=== PATIENT | female | born 1955 | race Caucasian/White ===

== ENCOUNTER 2024-02-17 07:32 | Inpatient (IN) | payer OTHER, MEDICAID ==
[~2024-02-17] VITALS: Ht 162.6 cm; Wt 81.8 kg
[~2024-02-17 07:32] MED LIST: OMEP20CA74 PO
[2024-02-17 07:59] LABS: Basophils # (auto) 0.1 10 ^3/uL (0-0.2); Basophils % (auto) 1.2 % (0.0-2.0); Eosinophils # (auto) 0.2 10 ^3/uL (0-0.8); Eosinophils % (auto) 3.9 % (0.0-7.0); Hematocrit 42.1 % (36.0-46.0); Hemoglobin 14.5 g/dL (12.2-16.2); Lymphocytes # (auto) 2.2 10 ^3/uL (0.4-5.4); Mean Corpuscular Hemoglobin 31.7 pg (28.0-32.0); Mean Corpuscular Hgb Conc. 34.4 g/dL (32.0-36.0); Mean Corpuscular Volume 92.1 fL (80.0-100.0); Monocytes # (auto) 0.4 10 ^3/uL (0-1.3); Monocytes % (auto) 6.9 % (0.0-12.0); Neutrophils # (auto) 3.3 10 ^3/uL (1.6-8.6); Nucleated Red Blood Cells % 0.1 %; Red Blood Cells 4.57 10^6/uL (4.0-5.20); Red Cell Distribution Width 13.1 % (11.8-14.3); White Blood Cell 6.3 10^3/uL (4.4-10.8)
[2024-02-17 08:08] VITALS: RESP 16; O2SAT 99
[2024-02-17 08:19] LABS: Chloride 108 mmol/L (98-107); Potassium 4.2 mmol/L (3.5-5.1); Sodium 140 mmol/L (136-145)
[2024-02-17 08:20] LABS: Anion Gap 3 (5-15); Calcium 9.3 mg/dL (8.7-10.4); Carbon Dioxide 29 mmol/L (20-30)
[2024-02-17 08:25] LABS: Blood Urea Nitrogen 8 mg/dL (9-23); Glucose 195 mg/dL (74-106)
[2024-02-17 13:24] LABS: Urine Bacteria FEW /hpf (None Seen); Urine Blood TRACE /uL (Negative); Urine Color Yellow (Yellow); Urine Protein, UAD TRACE (Negative); Urine Specific Gravity 1.023 (1.001-1.035); Urine Urobilinogen 3 mg/dL (Negative); Urine WBC 35 /hpf (0 - 5); Urine pH 5.5 (5.0-9.0)
[2024-02-17 13:26] LABS: Urine Clarity Cloudy (Clear)
[2024-02-17] MEDS ORDERED: IPRATROPIUM BROM 0.5 MG/2.5ML INH SOL NEB SCH (15:45)
[2024-02-17] MEDS ORDERED: ALBUTEROL SULF 2.5 MG/0.5ML(0.5%) NEB SOLN NEB SCH (15:45)
[2024-02-17] MEDS: cefTRIAXone 1GM/50ML D5W 50 ML IV SCH (17:53)
[2024-02-17 17:58] LABS: Rapid Influenza A Negative (Negative)
[2024-02-17] MEDS ORDERED: DEXTROSE (50%) 50ML SYRG IV PRN (18:00)
[2024-02-17 18:01] LABS: COVID19 ANTIGEN SOFIA FIA NEGATIVE (NEGATIVE); Rapid Influenza B Positive (Negative)
[2024-02-17 19:36] VITALS: PULSE 85; RESP 20; O2SAT 100; O2SAT 96
[2024-02-17] MEDS: ALBUTEROL SULF 2.5 MG/0.5ML(0.5%) NEB SOLN NEB SCH (19:36)
[2024-02-17] MEDS: IPRATROPIUM BROM 0.5 MG/2.5ML INH SOL NEB SCH (19:36)
[2024-02-17] MEDS: ACCU-CHEK COMFORT CURVE STRIP VI SCH (22:00)
[2024-02-17] MEDS: SODIUM CHLOR 0.9% PF (SALINE LOCK) 10ML VIAL/SYR IV SCH (22:00)
[2024-02-17 23:00] VITALS: PULSE 72; RESP 18; O2SAT 96
[2024-02-17] MEDS: InsuLIN REG 1unit/0.01ml Soln (100units/ml) SC SCH (23:18)
[2024-02-17] MEDS: LACTATED RINGER'S 1,000 ML IV ONE (23:19)
[2024-02-17] MEDS: OSELTAMIVIR 75 MG CAP PO SCH (23:19)
[2024-02-17 23:22] VITALS: BP 146/55; PULSE 85; RESP 18; TEMP 98.6; O2SAT 96
[2024-02-18] VITALS (10 sets, daily range): BP systolic 139–148; BP diastolic 62–73; PULSE 61–100; RESP 12–88; TEMP 97.2–98.3; O2SAT 94–100
[2024-02-18 05:13] LABS: Basophils # (auto) 0 10 ^3/uL (0-0.2); Basophils % (auto) 0.6 % (0.0-2.0); Eosinophils # (auto) 0.1 10 ^3/uL (0-0.8); Eosinophils % (auto) 1.7 % (0.0-7.0); Hematocrit 39.6 % (36.0-46.0); Hemoglobin 13.6 g/dL (12.2-16.2); Lymphocytes # (auto) 1.8 10 ^3/uL (0.4-5.4); Lymphocytes % (auto) 22.8 % (10.0-50.0); Mean Corpuscular Hemoglobin 31.6 pg (28.0-32.0); Mean Corpuscular Hgb Conc. 34.3 g/dL (32.0-36.0); Monocytes # (auto) 0.5 10 ^3/uL (0-1.3); Monocytes % (auto) 6.8 % (0.0-12.0); Neutrophils # (auto) 5.3 10 ^3/uL (1.6-8.6); Neutrophils % (auto) 68.1 % (37.0-80.0); Red Blood Cells 4.31 10^6/uL (4.0-5.20); Red Cell Distribution Width 13.1 % (11.8-14.3); White Blood Cell 7.8 10^3/uL (4.4-10.8)
[2024-02-18 05:37] LABS: Alanine Aminotransferase 15 U/L (7-40); Alkaline Phosphatase 95 U/L (46-116); Anion Gap 9 (5-15); Aspartate Aminotransferase 9 U/L (13-40); BUN/Creatinine Ratio 11.8 (10.0-20.0); Bilirubin, Total 0.5 mg/dL (0.2-1.0); Blood Urea Nitrogen 9 mg/dL (9-23); Calcium 9.3 mg/dL (8.7-10.4); Carbon Dioxide 26 mmol/L (20-30); Chloride 107 mmol/L (98-107); Glucose 168 mg/dL (74-106); Potassium 3.6 mmol/L (3.5-5.1); Sodium 142 mmol/L (136-145); Total Protein 6.8 g/dL (5.7-8.2)
[2024-02-18] MEDS: ENOXAPARIN SOD 40 MG/0.4 ML SYRINGE SC SCH (10:24)
[2024-02-18] MEDS: OMEPRAZOLE-SOD BICARB 20 MG POWDER PO SCH (11:20)
[2024-02-18] MEDS: HYDROcodone-ACET 5/325MG TAB PO PRN (15:30)
[2024-02-18] MEDS: ONDANSETRON HCL 4 MG/2 ML VIAL IV PRN (15:30)
[2024-02-18] MEDS ORDERED: AML5T PO (15:58)
[2024-02-18] MEDS ORDERED: CEPH250C PO ×2 (15:58→15:59)
[2024-02-18] MEDS ORDERED: TAMIFLU PO (15:58)
[2024-02-18] MEDS ORDERED: METF-370 PO (16:00)
[2024-02-18] MEDS: amLODIPine BESYLATE 5 MG TAB PO STA (16:36)
[2024-02-18] MEDS: ACETAMINOPHEN 325 MG TAB PO PRN (19:02)
[2024-02-19] MEDS ORDERED: amLODIPine BESYLATE 5 MG TAB PO SCH (10:00)
== END 2024-02-18 19:30 | disposition home or self-care (01) | DRG 194 ==
LOC: ER 07:37 → OVERFLOW 17:59
PROVIDERS: ADMIT Internal Medicine Pulmonary Disease; ATTEND Internal Medicine Pulmonary Disease
DX: J10.1 Influenza due to other identified influenza virus with other respiratory manifestations (principal); N30.00 Acute cystitis without hematuria; I10 Essential (primary) hypertension; F17.210 Nicotine dependence, cigarettes, uncomplicated; F41.9 Anxiety disorder, unspecified; Z20.822 Contact with and (suspected) exposure to COVID-19; E78.5 Hyperlipidemia, unspecified; Z87.11 Personal history of peptic ulcer disease; Z82.49 Family history of ischemic heart disease and other diseases of the circulatory system; E11.65 Type 2 diabetes mellitus with hyperglycemia
CPT/HCPCS: 36415; 70450; 71045; 80048; 80053; 81001; 82962; 83036; 84484; 85025; 87086; 87426; 87804; 93005; 94640; G0378; J1815; J2405

== ENCOUNTER 2024-07-25 08:08 | Day surgery (SDC) | payer OTHER, MEDICAID ==
[2024-07-16 14:50] LABS: Basophils # (auto) 0.1 10 ^3/uL (0-0.2); Basophils % (auto) 0.8 % (0.0-2.0); Eosinophils # (auto) 0.3 10 ^3/uL (0-0.8); Hematocrit 45.3 % (36.0-46.0); Hemoglobin 15.6 g/dL (12.2-16.2); Mean Corpuscular Hemoglobin 32.5 pg (28.0-32.0); Mean Corpuscular Hgb Conc. 34.5 g/dL (32.0-36.0); Mean Corpuscular Volume 94.3 fL (80.0-100.0); Monocytes # (auto) 0.4 10 ^3/uL (0-1.3); Monocytes % (auto) 5.8 % (0.0-12.0); Neutrophils # (auto) 4.7 10 ^3/uL (1.6-8.6); Neutrophils % (auto) 62.4 % (37.0-80.0); Platelet Count (auto) 253 10^3/uL (140-450); Red Cell Distribution Width 12.7 % (11.8-14.3); White Blood Cell 7.5 10^3/uL (4.4-10.8)
[2024-07-16 14:56] LABS: Urine Bacteria FEW /hpf (None Seen); Urine Blood TRACE /uL (Negative); Urine Clarity Cloudy (Clear); Urine Color Light-Yellow (Yellow); Urine Protein, UAD Negative (Negative); Urine Specific Gravity 1.015 (1.001-1.035); Urine Squamous Epithelial Cell MOD /hpf (<5); Urine Urobilinogen Normal (Negative); Urine WBC 99 /hpf (0 - 5); Urine pH 5.5 (5.0-9.0)
[2024-07-16 15:08] LABS: INR 0.99 (0.9-1.15); Partial Thromboplastin Time 29.1 SEC (24.5-34.5); Prothrombin Time 10.5 sec (9.3-11.8)
[2024-07-16 15:30] LABS: Alanine Aminotransferase 14 U/L (7-40); Albumin 4.4 g/dL (3.2-4.8); Anion Gap 7 (5-15); Aspartate Aminotransferase 18 U/L (13-40); BUN/Creatinine Ratio 11.1 (10.0-20.0); Calcium 9.6 mg/dL (8.7-10.4); Carbon Dioxide 28 mmol/L (20-31); Chloride 105 mmol/L (98-107); Potassium 3.6 mmol/L (3.5-5.1); Sodium 140 mmol/L (136-145); Total Protein 7.5 g/dL (5.7-8.2)
[2024-07-16 15:31] LABS: Alkaline Phosphatase 121 U/L (46-116); Bilirubin, Total 0.3 mg/dL (0.2-1.0); Blood Urea Nitrogen 9 mg/dL (9-23); Glucose 172 mg/dL (74-106)
[~2024-07-25] VITALS: Ht 162.6 cm; Wt 83.9 kg
[~2024-07-25 08:08] MED LIST changes: +AML5T PO; +METF-370 PO; +SEMA2INJ3 SC; +SERT25TA84 PO
[2024-07-25] MEDS ORDERED: PROPOFOL 10 MG/ML 20 ML IV ONE (09:28)
[2024-07-25] MEDS ORDERED: ONDANSETRON HCL 4 MG/2 ML VIAL ONE (09:54)
[2024-07-25 10:02] VITALS: PULSE 76; RESP 14; O2SAT 100
[2024-07-25 10:30] VITALS: BP 121/48; PULSE 62; RESP 14; O2SAT 97
--- NOTE | 2024-07-26 13:04 | DVHNC2 ---
Procedure - PROCEDURE DATE: July 25, 2024 SURGEON: Naheed Gotti MD REFERRING PROVIDER: None given PROCEDURE PERFORMED: 1. COLONOSCOPY WITH BIOPSY WITH ANESTHESIA PRE-PROCEDURE DIAGNOSIS: 1. HISTORY OF COLON POLYPS 2. FAMILY HISTORY OF COLON CANCER POSTPROCEDURE DIAGNOSIS: 1. 4 MM ASCENDING COLON POLYP 2. SEVERE LEFT-SIDED DIVERTICULOSIS 3. INTERNAL AND EXTERNAL HEMORRHOIDS INDICATIONS FOR PROCEDURE: The patient is a 68-YEAR-OLD FEMALE WITH FAMILY HISTORY OF COLON CANCER AND A PERSONAL HISTORY OF COLON POLYPS. ANESTHESIOLOGY: Per Dr. Baca DETAILS OF THE PROCEDURE: Informed consent was obtained after risks, benefits, and alternatives, were discussed at length with the patient. Consent was given for the procedures as well as for the anesthesia. The patient was placed in left lateral decubitus position. Digital rectal exam showed internal and small external hemorrhoids. An Olympus variable torsion. colonoscope was inserted into the rectum and advanced to the cecum. The cecum was identified by the ileocecal valve in the appendiceal orifice. The scope was then withdrawn. The prep was fair with small amounts of stool throughout. Small or flat lesions could have been missed. There were no large polyps, masses, strictures, or arteriovenous malformation seen. The patient had one small colon polyp in the ascending colon measuring 4 mm removed with biopsy forceps. The patient had severe left-sided diverticulosis. Retroflexion showed 2+ internal hemorrhoids. More than 6 minutes withdrawal time was noted. The patient tolerated the pro cedure well. IMPRESSION: 1. One small colon polyp removed with biopsy forceps 2. Severe left-sided diverticulosis 3. Small internal external hemorrhoids RECOMMENDATIONS: 1. Follow up in GI clinic for procedure and pathology results 2. High-fiber diet 3. Repeat colonoscopy in three years unless otherwise indicated by symptoms, or pathology , or family history 4. Follow up with primary care physician 5. Medical management for the hemorrhoids as needed NAHEED GOTTI MD Jul 26, 2024 13:04
== END 2024-07-25 10:35 | disposition home or self-care (01) ==
LOC: GI 08:08
PROVIDERS: ATTEND Specialist
DX: Z12.11 Encounter for screening for malignant neoplasm of colon (principal); D12.2 Benign neoplasm of ascending colon; K57.30 Diverticulosis of large intestine without perforation or abscess without bleeding; K64.8 Other hemorrhoids; K64.4 Residual hemorrhoidal skin tags; E78.00 Pure hypercholesterolemia, unspecified; F43.10 Post-traumatic stress disorder, unspecified; F41.9 Anxiety disorder, unspecified; Z79.84 Long term (current) use of oral hypoglycemic drugs; Z79.899 Other long term (current) drug therapy; Z98.891 History of uterine scar from previous surgery; Z86.0100 Personal history of colon polyps, unspecified; Z98.890 Other specified postprocedural states; Z80.0 Family history of malignant neoplasm of digestive organs
CPT/HCPCS: 36415; 45380; 80053; 81001; 82962; 85025; 85610; 85730; 88305; J2405; J2704